=== PATIENT | female | born 1995 ===

== ENCOUNTER 2025-03-10 13:50 | Emergency (ER) | payer OTHER ==
[~2025-03-10] VITALS: Ht 165.1 cm; Wt 51.7 kg
[2025-03-10] MEDS ORDERED: ACETAMINOPHEN 500 MG GEL..CAP PO ONE ×2 (15:42→15:45)
[2025-03-10 16:21] LABS: BASO % 0.4 % (0.1-1.2); EOS # 0.21 (0.04-0.54); EOS % 1.6 % (0.7-7.0); LYMPH # 2.38 (1.18-3.74); LYMPH % 17.8 % (19.3-53.1); MEAN PLATELET VOLUME 9.70 fl (9.4-12.4); MONO # 1.02 (0.24-0.82); MONO % 7.6 % (4.7-12.5); NEUT # 9.69 (1.56-6.13); NEUT % 72.3 % (34.0-71.1); RED CELL DISTRIBUTION WIDTH 12.6 % (11.6-14.4)
[2025-03-10 16:51] LABS: URINE APPEARANCE Cloudy; URINE BILIRRUBIN Negative (NEGATIVE); URINE BLOOD Large; URINE COLOR Red; URINE GLUCOSE Negative (NEGATIVE); URINE KETONE Negative (NEGATIVE); URINE LEUKOCYTE Moderate; URINE NITRATE Negative; URINE PROTEIN 30 (NEGATIVE); URINE UROBILINOGEN 1.0 E.U./dl
[2025-03-10 16:55] LABS: URINE BACTERIA 291.5 uL (0.0-1933); URINE EPITHELIAL CELLS 44.1 uL (0.0-38.8); URINE WBC 128.2 uL (0.0-23.2)
[2025-03-10 16:55] LABS: INR 1.04
[2025-03-10 17:00] LABS: ALT/SGPT 21.0 U/L (12-78); AST/SGOT 12.0 U/L (15-37); BILIRUBIN TOTAL 0.4 mg/dL (0.3-1.2); BUN CREA RATIO 15.0 (7.0-25.0); CREATININE SERUM 0.66 mg/dL (0.55-1.02); GFR 105.88; GLOBULINA 3.7 G/DL (2.4-3.5); GLUCOSE FASTING 87.0 mg/dL (65-100); OSMOLALITY SERUM 283.0 MOSM/KG (275-295)
[2025-03-10 17:06] LABS: URINE CAST 0.14 uL (0.0-1.40); URINE RBC > 10558.9 uL (0.0-20.8)
[2025-03-10] MEDS ORDERED: MACROBID 100 M100 MG PO (20:28)
[2025-03-10] MEDS ORDERED: LIDOCAINE HCL/MPF 1% 5ML VIAL IJ ONE (20:41)
[2025-03-10] MEDS ORDERED: CEFTRIAXONE SODIUM 1,000 MG VIAL ONE (20:42)
[2025-03-10] MEDS ORDERED: CEFTRIAXONE SODIUM 1,000 MG VIAL IM ONE (20:45)
== END 2025-03-10 21:06 | disposition home or self-care (01) ==
LOC: ER 13:51
DX: N93.9 Abnormal uterine and vaginal bleeding, unspecified (principal); N39.0 Urinary tract infection, site not specified